=== PATIENT | male | born 1960 | race Caucasian/White ===

== ENCOUNTER 2020-09-17 07:32 | Emergency (ER) | payer SELFPAY ==
[2020-09-17] MEDS ORDERED: Sodium Chloride 0.9% 2.5 ML Syringe FLUSH PRN (07:58)
[2020-09-17] MEDS ORDERED: Sodium Chloride 0.9% 10 ML Syringe FLUSH PRN (07:58)
--- NOTE | 2020-09-17 08:09 | EDM.PDOC ---
ED HPI GENERAL MEDICAL PROBLEM - General Chief Complaint: General Stated Complaint: NAUSEA AND DIZZINESS Time Seen by Provider: 09/17/20 07:35 - History of Present Illness INITIAL COMMENTS - FREE TEXT/NARRATIVE: History of present illness: This patient reports intermittent morning panic attacks and chronic anxiety. He has been taking care of his son who is on a ventilator for a long time with pneumonia. 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 Since then the son has recovered almost completely and the has had 2 surgeries. The patient does have a lot on his mind. Work is somewhat stressful although he says not terrible. A couple of weeks ago he saw a local provider who put him on buspirone 15 mg twice a day as needed for anxiety. He is taking it every day Patient is a smoker. He denies chest pain. He cannot bring on his symptoms with exertion. Not diabetic to his knowledge and not treated for hypertension. He has not seen a doctor in many many years until he saw the walk-in clinic 2 weeks ago. He has not had any blood work, cholesterol work-up, EKG, chest x- ray, or other things it would be appropriate for an initial evaluation by a physician. He does plan to see his [facility] doctor since I encouraged him to make an appointment with somebody who can follow-up. [] Review of systems: As per history of present illness and below otherwise all systems reviewed and negative. Past medical history: As per history of present illness and as reviewed below otherwise noncontributory. Surgical history: As per history of present illness and as reviewed below otherwise noncontributory. Social history: No reported history of drug or alcohol abuse. Family history: As per history of present illness and as reviewed below otherwise noncontributory. Physical exam: Constitutional - well developed, well-nourished and in no acute distress HEENT - normocephalic, no evidence of trauma - external nose and mouth normal - no mass in neck and no JVD - mucosae moist EYES - full EOM, PERRL, no icterus - no evidence of inflammation, injection, or drainage Respiratory - no respiratory distress, equal bilateral expansion, lungs diminished to auscultation and scattered light wheezes worse on the right. Cardiovascular - Regular Rhythm with S1 and S2 appreciated and no murmur, gallop or rub. GI - abdomen soft without distension or organomegaly - normal bowel sounds - no guard or rebound Musculoskeletal no gross deformity of long bones or joints - no tenderness, swelling or edema Neurologic - Alert and oriented times four - CN II-XII grossly intact - motor sensory and coordination symmetrically normal Psychiatric - appropriate mood and affect with normal thought content Hematologic - No petechiae or purpura - mucosa appropriate color and sclera not pale - normal nail bed color and refill Integument - no rash or evidence of trauma - normal turgor Diagnostics: [] Therapeutics: [] Impression: [] Plan: [] Definitive disposition and diagnosis as appropriate pending reevaluation and review of above. - Related Data Allergies Allergy/AdvReac Type Severity Reaction Status Date / Time No Known Allergies Allergy Verified 09/17/20 07:43 Home Meds: Home Meds ALPRAZolam [Xanax] 1 mg PO TID PRN #30 tablet 09/17/20 [Rx] busPIRone [Buspar] 10 mg PO BID #60 tablet 09/17/20 [Rx] busPIRone [Buspar] 15 mg PO DAILY 09/17/20 [History] Past Medical History - Past Health History Medical/Surgical History: Denies Medical/Surgical History Psychiatric History: Reports: Anxiety - Infectious Disease History Infectious Disease History: Reports: Chicken Pox - Past Surgical History Musculoskeletal Surgical History: Reports: Other (See Below) Other Musculoskeletal Surgeries/Procedures:: 8 knee surgeries Social & Family History - Tobacco Use Tobacco Use Status *Q: Current Every Day Tobacco User Years of Tobacco use: 30 Packs/Tins Daily: 1 - Caffeine Use Caffeine Use: Reports: None - Recreational Drug Use Recreational Drug Use: No ED ROS GENERAL - Review of Systems Review Of Systems: Comprehensive ROS is negative, except as noted in HPI. ED EXAM, GENERAL - Physical Exam Exam: See Below Free Text/Narrative:: My physical exam is in the HPI #1 Interpretation EKG Interpretation Comments: EKG sinus rhythm heart rate 71. DE interval 154. QT duration 420. Eads -15. There is a borderline left axis deviation. There is no prior EKG for comparison. Impression this EKG does not cause any concern for acute injury or arrhythmia Course - Vital Signs Text/Narrative:: Age 43 in summary after reviewing his reports and results this patient has an underlying anxiety disorder, tobacco use disorder, elevated transaminases, degenerative changes in the spine. Last Recorded V/S: Last Vital Signs Temp 36.2 C 09/17/20 07:44 Pulse 87 09/17/20 07:44 Resp 18 09/17/20 07:44 BP 146/93 H 09/17/20 07:44 Pulse Ox 96 09/17/20 07:44 - Orders/Labs/Meds Orders: Active Orders 24 hr Category Date Time Status EKG Documentation Completion [RC] AM Care 09/17/20 07:58 Active UA W/RASHAWN RFLX IF INDICATED [URIN] Stat Lab 09/17/20 07:59 Ordered ALPRAZolam [Xanax] Med 09/17/20 08:44 Once 1 mg PO NOW ONE Sodium Chloride 0.9% [Saline Flush] Med 09/17/20 07:58 Active 10 ml FLUSH ASDIRECTED PRN Sodium Chloride 0.9% [Saline Flush] Med 09/17/20 07:58 Active 2.5 ml FLUSH ASDIRECTED PRN Saline Lock Insert [OM.PC] Stat Oth 09/17/20 07:58 Ordered Medication Orders Sodium Chloride (Sodium Chloride 0.9% 10 Ml Syringe) 10 ml FLUSH ASDIRECTED PRN PRN Reason: Keep Vein Open Sodium Chloride (Sodium Chloride 0.9% 2.5 Ml Syringe) 2.5 ml FLUSH ASDIRECTED PRN PRN Reason: Keep Vein Open Labs: Laboratory Tests 09/17/20 09/17/20 09/17/20 Range/Units 07:45 07:45 07:45 WBC 4.45 (4.0-11.0) K/uL RBC 3.98 L (4.50-5.90) M/uL Hgb 14.4 (13.0-17.0) g/dL Hct 41.5 (38.0-50.0) % MCV 104.3 H (80.0-98.0) fL MCH 36.2 H (27.0-32.0) pg MCHC 34.7 (31.0-37.0) g/dL RDW Std Deviation 49.5 (28.0-62.0) fl RDW Coeff of Fatuma 13 (11.0-15.0) % Plt Count 183 (150-400) K/uL MPV 10.30 (7.40-12.00) fL Neut % (Auto) 38.9 L (48.0-80.0) % Lymph % (Auto) 47.0 H (16.0-40.0) % [place] % (Auto) 10.1 (0.0-15.0) % Eos % (Auto) 2.9 (0.0-7.0) % Baso % (Auto) 1.1 (0.0-1.5) % Neut # (Auto) 1.7 (1.4-5.7) K/uL Lymph # (Auto) 2.1 (0.6-2.4) K/uL [place] # (Auto) 0.5 (0.0-0.8) K/uL Eos # (Auto) 0.1 (0.0-0.7) K/uL Baso # (Auto) 0.1 (0.0-0.1) K/uL Nucleated RBC % 0.0 /100WBC Nucleated RBCs # 0 K/uL Sodium 138 (136-148) mmol/L Potassium 3.6 (3.5-5.1) mmol/L Chloride 102 (98-107) mmol/L Carbon Dioxide 27.8 (21.0-32.0) mmol/L BUN 11 (7.0-18.0) mg/dL Creatinine 0.9 (0.8-1.3) mg/dL Est Cr Clr Drug Dosing 88.48 mL/min Estimated GFR (MDRD) > 60.0 ml/min Glucose 114 H (74-106) mg/dL Calcium 8.2 L (8.5-10.1) mg/dL Total Bilirubin 0.6 (0.2-1.0) mg/dL AST 206 H (15-37) IU/L ALT 220 H (14-63) IU/L Alkaline Phosphatase 103 (46-116) U/L Troponin I < 0.050 (0.000-0.056) ng/mL Total Protein 7.6 (6.4-8.2) g/dL Albumin 3.9 (3.4-5.0) g/dL Globulin 3.7 (2.6-4.0) g/dL Albumin/Globulin Ratio 1.1 (0.9-1.6) Triglycerides 54 (0-200) mg/dL Cholesterol 175 (50-200) mg/dL LDL Cholesterol, Calc 57 L (60-180) mg/dL VLDL Cholesterol 10 (5-55) mg/dL HDL Cholesterol 107 H (40-60) mg/dL Cholesterol/HDL Ratio 1.6 L (3.3-6.0) Lipase 201 (73-393) U/L TSH 3rd Generation 1.86 (0.36-3.74) uIU/mL Meds: Medications Generic Name Dose Route Start Last Admin Trade Name Freq PRN Reason Stop Dose Admin Sodium Chloride 10 ml 09/17/20 07:58 Sodium Chloride 0.9% 10 Ml Syringe FLUSH ASDIRECTED PRN Keep Vein Open Sodium Chloride 2.5 ml 09/17/20 07:58 Sodium Chloride 0.9% 2.5 Ml Syringe FLUSH ASDIRECTED PRN Keep Vein Open Departure - Departure Time of Disposition: 08:56 Disposition: Home, Self-Care 01 Condition: Good Clinical Impression: Anxiety disorder, DJD (degenerative joint disease) of thoracic spine, Elevated transaminase level, Tobacco dependence due to cigarettes - Discharge Information Prescriptions: busPIRone [Buspar] 10 mg PO BID #60 tablet ALPRAZolam [Xanax] 1 mg PO TID PRN #30 tablet PRN Reason: Anxiety Instructions: Smoking Tobacco Information, Adult, Steps to Quit Smoking, Eas y-to-Read, Managing Anxiety, Adult Referrals: PCP,None [Primary Care Provider] - Forms: ED Department Discharge Additional Instructions: Try the Xanax. He may have to take half a tablet instead of a full tablet. This is to tide you over until the buspirone starts to work. Ultimately if you talk out things to cause you to be anxious you may be able to come off both of these medicines. [facility] Address: [address] [place] [id number] Hours: walk in 9 AM M-F [facility] [address] [place] [address] [facility] [address] [place] [address] It is imperative that you establish a relationship with a primary care clinic or family doctor. The following information is given to patients seen in the emergency department who are being discharged to home. This information is to outline your options for follow-up care. We provide all patients seen in our emergency department with a follow-up referral. The need for follow-up, as well as the timing and circumstances, are variable depending upon the specifics of your emergency department visit. If you don't have a primary care physician on staff, we will provide you with a referral. We always advise you to contact your personal physician following an emergency department visit to inform them of the circumstance of the visit and for follow-up with them and/or the need for any referrals to a consulting specialist. The emergency department will also refer you to a specialist when appropriate. This referral assures that you have the opportunity for follow-up care with a specialist. All of these measure are taken in an effort to provide you with optimal care, which includes your follow-up. Under all circumstances we always encourage you to contact your private physician who remains a resource for coordinating your care. When calling for follow-up care, please make the office aware that this follow-up is from your recent emergency room visit. If for any reason you are refused follow-up, please contact the [facility] Emergency Department at and asked to speak to the emergency department charge nurse. Sepsis Event Note (ED) - Evaluation Sepsis Screening Result: No Definite Risk - Focused Exam Vital Signs: Vital Signs Temp Pulse Resp BP Pulse Ox 09/17/20 07:44 36.2 C 87 18 146/93 H 96 - My Orders Last 24 Hours: My Active Orders 09/17/20 07:58 EKG Documentation Completion [RC] AM Sodium Chloride 0.9% [Saline Flush] 10 ml FLUSH ASDIRECTED PRN Sodium Chloride 0.9% [Saline Flush] 2.5 ml FLUSH ASDIRECTED PRN Saline Lock Insert [OM.PC] Stat 09/17/20 07:59 UA W/RASHAWN RFLX IF INDICATED [URIN] Stat 09/17/20 08:44 ALPRAZolam [Xanax] 1 mg PO NOW ONE - Assessment/Plan Last 24 Hours: My Active Orders 09/17/20 07:58 EKG Documentation Completion [RC] AM Sodium Chloride 0.9% [Saline Flush] 10 ml FLUSH ASDIRECTED PRN Sodium Chloride 0.9% [Saline Flush] 2.5 ml FLUSH ASDIRECTED PRN Saline Lock Insert [OM.PC] Stat 09/17/20 07:59 UA W/RASHAWN RFLX IF INDICATED [URIN] Stat 09/17/20 08:44 ALPRAZolam [Xanax] 1 mg PO NOW ONE
[2020-09-17 08:23] LABS: BLOOD UREA NITROGEN,BUN 11 mg/dL (7.0-18.0); CARBON DIOXIDE,CO2 27.8 mmol/L (21.0-32.0); CHLORIDE,CL 102 mmol/L (98-107); GLUCOSE RANDOM 114 mg/dL (74-106); LIPASE 201 U/L (73-393); POTASSIUM,K 3.6 mmol/L (3.5-5.1); SODIUM,NA 138 mmol/L (136-148)
--- NOTE | 2020-09-17 08:29 | CR ---
For Patients: As a result of the Cures Act, medical imaging exams and procedure reports are released immediately into your electronic medical record. You may view this report before your referring provider. If you have questions, please contact your health care provider. HISTORY: Palpitations. TECHNIQUE: Two views of the chest. COMPARISON: No prior. FINDINGS: No acute lung infiltrate or pulmonary edema. No pneumothorax or pleural effusion. Cardiac size and pulmonary vasculature are within normal limits. There are degenerative changes of the spine. IMPRESSION: No acute disease. Dictated by Amor Latham MD @ 09/17/2020 8:29:[address] Amor Latham @ Sep 17 2020 8:29AM
[2020-09-17] MEDS ORDERED: ALPRAZolam 0.5 MG Tab PO ONE (08:44)
== END 2020-09-17 09:20 | disposition home or self-care (01) ==
LOC: MW.ED 07:32
DX: F41.9 Anxiety disorder, unspecified (principal); M47.814 Spondylosis without myelopathy or radiculopathy, thoracic region; F17.210 Nicotine dependence, cigarettes, uncomplicated; R74.01 Elevation of levels of liver transaminase levels
CPT/HCPCS: 36415; 71046; 71046-26; 80053; 80061; 83690; 84443; 84484; 85025; 93005; 99284-25

== ENCOUNTER 2021-01-20 13:20 | Emergency (ER) | payer SELFPAY ==
--- NOTE | 2021-01-20 15:09 | CR ---
INDICATION: Hemoptysis. TECHNIQUE: Chest 1 views. COMPARISON: 09/17/2020. FINDINGS: Cardiovascular and mediastinum: Heart size and vasculature are normal in caliber and appearance. Lungs and pleural spaces: Lungs are clear. No sign of infiltrate or mass. No sign of pleural effusion. No pneumothorax. Bones and soft tissues: No significant findings. IMPRESSION: No acute findings and no significant changes from the prior exam. Dictated by Alan Morrison MD @ 01/20/2021 3:07:59 PM (Electronically Signed)
--- NOTE | 2021-01-20 15:20 | EDM.PDOC ---
ED HPI GENERAL MEDICAL PROBLEM - General Chief Complaint: Respiratory Problem Stated Complaint: COUGHING UP BLOOD Time Seen by Provider: 01/20/21 13:28 Source of Information: Reports: Patient History Limitations: Reports: No Limitations - History of Present Illness INITIAL COMMENTS - FREE TEXT/NARRATIVE: 60-year-old male past medical history hypertension, tobacco use presents for hemoptysis. Patient states that for the last 2 or 3 days he has had a nonproductive cough, tickle in his throat. He denies any shortness of breath. Denies fevers. Denies loss of taste or smell. Yesterday he began to develop blood-streaked sputum and this morning had some rust colored sputum. He does not have a history of hemoptysis in the past. No history of DVT or PE. - Related Data Allergies Allergy/AdvReac Type Severity Reaction Status Date / Time No Known Allergies Allergy Verified 01/20/21 14:09 Home Meds: Home Meds ALPRAZolam [Xanax] 1 mg PO TID PRN #30 tablet 09/17/20 [Rx] busPIRone [Buspar] 10 mg PO BID #60 tablet 09/17/20 [Rx] busPIRone [Buspar] 15 mg PO DAILY 09/17/20 [History] Doxycycline [Vibramycin] 100 mg PO BID 10 Days #20 cap 01/20/21 [Rx] Past Medical History - Past Health History Medical/Surgical History: Denies Medical/Surgical History Psychiatric History: Reports: Anxiety - Infectious Disease History Infectious Disease History: Reports: Chicken Pox - Past Surgical History Musculoskeletal Surgical History: Reports: Other (See Below) Other Musculoskeletal Surgeries/Procedures:: 8 knee surgeries Social & Family History - Family History Family Medical History: No Pertinent Family History - Tobacco Use Tobacco Use Status *Q: Current Every Day Tobacco User Years of Tobacco use: 30 Packs/Tins Daily: 1 - Caffeine Use Caffeine Use: Reports: None - Alcohol Use Days Per Week of Alcohol Use: 7 Number of Drinks Per Day: 2 Total Drinks Per Week: 14 Date of Last Drink: 01/19/21 - Recreational Drug Use Recreational Drug Use: No ED ROS GENERAL - Review of Systems Review Of Systems: Comprehensive ROS is negative, except as noted in HPI. ED EXAM, GENERAL - Physical Exam Exam: See Below Exam Limited By: No Limitations General Appearance: Alert, WD/WN, No Apparent Distress Ears: Hearing Grossly Normal Throat/Mouth: Normal Inspection, Normal Oropharynx, Normal Voice, No Airway Compromise Head: Atraumatic, Normocephalic Respiratory/Chest: No Respiratory Distress, Lungs Clear, Normal Breath Sounds, No Accessory Muscle Use Cardiovascular: Normal Peripheral Pulses, Regular Rate, Rhythm Extremities: Normal Inspection Neurological: Alert, Normal Cognition, Normal Gait Psychiatric: Normal Affect, Normal Mood Skin Exam: Warm, Dry, Intact, Normal Color Course - Vital Signs Last Recorded V/S: Last Vital Signs Temp 97.9 F 01/20/21 17:31 Pulse 77 01/20/21 17:31 Resp 18 01/20/21 17:31 BP 161/93 H 01/20/21 17:31 Pulse Ox 97 01/20/21 17:31 - Orders/Labs/Meds Orders: Active Orders 24 hr Category Date Time Status Saline Lock Insert [OM.PC] Stat Oth 01/20/21 15:16 Ordered Labs: Laboratory Tests 01/20/21 01/20/21 01/20/21 Range/Units 15:20 15:33 15:33 WBC 6.51 (4.0-11.0) K/uL RBC 3.73 L (4.50-5.90) M/uL Hgb 13.1 (13.0-17.0) g/dL Hct 38.4 (38.0-50.0) % MCV 102.9 H (80.0-98.0) fL MCH 35.1 H (27.0-32.0) pg MCHC 34.1 (31.0-37.0) g/dL RDW Std Deviation 47.2 (28.0-62.0) fl RDW Coeff of Fatuma 13 (11.0-15.0) % Plt Count 197 (150-400) K/uL MPV 10.00 (7.40-12.00) fL Neut % (Auto) 60.1 (48.0-80.0) % Lymph % (Auto) 30.4 (16.0-40.0) % [place] % (Auto) 8.1 (0.0-15.0) % Eos % (Auto) 0.9 (0.0-7.0) % Baso % (Auto) 0.5 (0.0-1.5) % Neut # (Auto) 3.9 (1.4-5.7) K/uL Lymph # (Auto) 2.0 (0.6-2.4) K/uL [place] # (Auto) 0.5 (0.0-0.8) K/uL Eos # (Auto) 0.1 (0.0-0.7) K/uL Baso # (Auto) 0.0 (0.0-0.1) K/uL Nucleated RBC % 0.0 /100WBC Nucleated RBCs # 0 K/uL Sodium 142 (136-148) mmol/L Potassium 3.8 (3.5-5.1) mmol/L Chloride 102 (98-107) mmol/L Carbon Dioxide 27.0 (21.0-32.0) mmol/L BUN 12 (7.0-18.0) mg/dL Creatinine 0.8 (0.8-1.3) mg/dL Est Cr Clr Drug Dosing 104.52 mL/min Estimated GFR (MDRD) > 60.0 ml/min Glucose 102 (74-106) mg/dL Calcium 8.1 L (8.5-10.1) mg/dL Total Bilirubin 0.4 (0.2-1.0) mg/dL AST 52 H (15-37) IU/L ALT 54 (14-63) IU/L Alkaline Phosphatase 121 H (46-116) U/L Total Protein 7.2 (6.4-8.2) g/dL Albumin 3.4 (3.4-5.0) g/dL Globulin 3.8 (2.6-4.0) g/dL Albumin/Globulin Ratio 0.9 (0.9-1.6) SARS-CoV-2 RNA (DORENE) NEGATIVE (NEGATIVE) Meds: Medications Discontinued Medications Generic Name Dose Route Start Last Admin Trade Name Freq PRN Reason Stop Dose Admin Iopamidol 100 ml 01/20/21 16:56 01/20/21 16:57 Iopamidol 755 Mg/Ml 500 Ml Multipack Bottle IVPUSH 01/20/21 16:57 100 ml ONETIME STA Administration - Re-Assessments/Exams Free Text/Narrative Re-Assessment/Exam: 01/20/21 15:20 We will get basic labs. Chest x-ray is unremarkable. Will get Covid swab. Will get CTA chest to rule out pulmonary embolism or malignancy. 01/20/21 17:28 CT imaging shows evidence of pneumonia. Will discharge with antibiotics. No evidence of pulmonary embolism. No masses or nodules. Departure - Departure Time of Disposition: 17:28 Disposition: Home, Self-Care 01 Condition: Good Clinical Impression: Pneumonia Qualifiers: Pneumonia type: due to unspecified organism Laterality: left Lung location: upper lobe of lung Qualified Code(s): J18.9 - Pneumonia, unspecified organism - Discharge Information Prescriptions: Doxycycline [Vibramycin] 100 mg PO BID 10 Days #20 cap Referrals: Bhargav Hudson DO [Primary Care Provider] - Forms: ED Department Discharge Additional Instructions: Your CT shows evidence of early developing pneumonia. This is likely why you are having the blood-tinged cough. I prescribed you an antibiotic and sent it to your pharmacy. Please follow-up with your primary care physician. If you are experiencing difficulty breathing then please come back to the emergency department for reassessment. Your prescriptions were sent to [facility] The following information is given to patients seen in the emergency department who are being discharged to home. This information is to outline your options for follow-up care. We provide all patients seen in our emergency department with a follow-up referral. The need for follow-up, as well as the timing and circumstances, are variable depending upon the specifics of your emergency department visit. If you don't have a primary care physician on staff, we will provide you with a referral. We always advise you to contact your personal physician following an emergency department visit to inform them of the circumstance of the visit and for follow-up with them and/or the need for any referrals to a consulting specialist. The emergency department will also refer you to a specialist when appropriate. This referral assures that you have the opportunity for follow-up care with a specialist. All of these measure are taken in an effort to provide you with optimal care, which includes your follow-up. Under all circumstances we always encourage you to contact your private physician who remains a resource for coordinating your care. When calling for follow-up care, please make the office aware that this follow-up is from your recent emergency room visit. If for any reason you are refused follow-up, please contact the [facility] Emergency Department at and asked to speak to the emergency department charge nurse. Please follow up with your primary care physician. If you do not have a primary care physician, see below: [facility] [address], [place] [address] My [facility] [address] [place], [place] [id number] [facility] [address] [place] [address] Sepsis Event Note (ED) - Evaluation Sepsis Screening Result: No Definite Risk - Focused Exam Vital Signs: Vital Signs Temp Pulse Resp BP Pulse Ox 01/20/21 17:31 97.9 F 77 18 161/93 H 97 01/20/21 16:30 98.2 F 78 18 160/86 H 98 01/20/21 15:12 98 F 75 16 159/91 H 98 01/20/21 14:12 98.2 F 83 16 160/94 H 97 - My Orders Last 24 Hours: My Active Orders 01/20/21 15:16 Saline Lock Insert [OM.PC] Stat - Assessment/Plan Last 24 Hours: My Active Orders 01/20/21 15:16 Saline Lock Insert [OM.PC] Stat
[2021-01-20 16:20] LABS: BLOOD UREA NITROGEN,BUN 12 mg/dL (7.0-18.0); CHLORIDE,CL 102 mmol/L (98-107); GLUCOSE RANDOM 102 mg/dL (74-106); POTASSIUM,K 3.8 mmol/L (3.5-5.1); SODIUM,NA 142 mmol/L (136-148)
[2021-01-20] MEDS ORDERED: Iopamidol 755 MG/ML 500 ML Multipack Bottle IVPUSH STA (16:56)
--- NOTE | 2021-01-20 17:25 | CT ---
INDICATION: Hemoptysis. Rule out pulmonary embolism or lung cancer. COMPARISON: Chest radiograph from today. TECHNIQUE: CT examination of the chest was performed with the uneventful intravenous administration of 100 cc of Isovue 370 while 1 and 1.5 mm thick axial sections were obtained through the pulmonary arteries. Please note that all CT scans at this facility use dose modulation, iterative reconstruction, and/or weight-based dosing when appropriate to reduce radiation dose to as low as reasonably achievable. FINDINGS: : There is no sign of pulmonary embolism, with normal enhancement and branching of the pulmonary arteries. There is a moderate, dense, rounded infiltrate in the inferior perihilar lingula, extending along the posterior-medial major fissure. This is consistent with bacterial pneumonia. The rest of the chest is clear. There is no sign of mediastinal or hilar mass or adenopathy. The heart is normal in appearance for the patient`s age. There is age appropriate appearance of the thoracic aorta and ascending great vessels. There is no sign of supraclavicular or axillary mass or adenopathy. The visualized superior liver, spleen, pancreas, kidneys, and adrenals are normal in appearance. The osseous structures are normal in appearance for the patient`s age. IMPRESSION: No sign of pulmonary embolism. Moderate sized rounded infiltrate in the infrahilar left upper lobe consistent with bacterial pneumonia. Please note that all CT scans at this facility use dose modulation, iterative reconstruction, and/or weight-based dosing when appropriate to reduce radiation dose to as low as reasonably achievable. Dictated by Osvaldo Busby MD @ 01/20/2021 5:24:51 PM (Electronically Signed)
== END 2021-01-20 17:44 | disposition home or self-care (01) ==
LOC: MW.ED 13:20
DX: J18.9 Pneumonia, unspecified organism (principal); I10 Essential (primary) hypertension; Z72.0 Tobacco use; Z20.822 Contact with and (suspected) exposure to COVID-19
CPT/HCPCS: 36415; 71045; 71275; 80053; 85025; 87635; 99284; Q9967; U0002